=== PATIENT | female | born 1950 | race Caucasian/White ===

== ENCOUNTER 2019-09-09 10:06 | Outpatient (CLI) | payer MEDICARE, OTHER, SELFPAY ==
[2019-09-09 10:45] LABS: Alanine Aminotransferase 39 U/L (4-35); Alkaline Phosphatase 99 U/L (38-126); Aspartate Amino Transferase 39 U/L (14-36); Bilirubin,Total 0.3 mg/dL (0.2-1.3); Blood Urea Nitrogen 16 mg/dL (7-17); Calcium 8.8 mg/dL (8.4-10.2); Carbon Dioxide 29 mmol/L (22-30); Chloride 102 mmol/L (98-107); Cholesterol 133 mg/dL (0-200); Estimated Glomerular Filt Rate > 60; Glucose 101 mg/dL (65-105); HDL Direct 51 mg/dL; Potassium 3.6 mmol/L (3.4-5.0); Sodium 139 mmol/L (137-145); Triglycerides 98 mg/dL (<150)
[2019-09-09 10:56] LABS: LDL Cholesterol Direct 70 mg/dL
[2019-09-09 11:15] LABS: Thyroid Stimulating Hormone 0.496 uIU/mL (0.465-4.680)
[2019-09-09 12:52] LABS: Iron 116 ug/dL (37-170)
[2019-09-09 12:55] LABS: Percent Iron Saturation 40 % (20-50)
== END 2019-09-09 10:07 | disposition home or self-care (01) ==
LOC: ANHLAB 10:10
PROVIDERS: PCP Internal Medicine; Visit Provider Nurse Practitioner
DX: E78.5 Hyperlipidemia, unspecified (principal); E55.9 Vitamin D deficiency, unspecified; E03.9 Hypothyroidism, unspecified; D50.9 Iron deficiency anemia, unspecified; E53.8 Deficiency of other specified B group vitamins
CPT/HCPCS: 36415; 80053; 80061; 82306; 82607; 83540; 83550; 84443

== ENCOUNTER 2019-09-30 11:32 | Outpatient (CLI) | payer MEDICARE, OTHER, SELFPAY ==
[2019-09-30 12:28] LABS: Add Urine Microscopic? YES; Appearance Urine Clear (Clear); Bilirubin Urine Negative (Negative); Blood Urine 2+ (Negative); Color Urine Colorless (Yellow); Glucose Urine UA Negative (Negative); Ketones Urine Negative (Negative); Leukocyte Esterase Ur Trace LEU/UL (Negative); Mucus Urine Rare /lpf; Nitrate Urine Negative (Negative); Protein Urine Negative (Negative); RBC Urine 0-2 /hpf (0-2); Specific Grav Ur 1.006 (1.001-1.035); Squamous Epithelial Cell Urine Rare /hpf (Few); Urobilinogen Urine Negative mg/dL (<2.0)
== END 2019-09-30 11:33 | disposition home or self-care (01) ==
LOC: ANHLAB 11:34
PROVIDERS: PCP Internal Medicine; Visit Provider Nurse Practitioner
DX: R39.9 Unspecified symptoms and signs involving the genitourinary system (principal)
CPT/HCPCS: 81001

== ENCOUNTER 2019-10-03 13:29 | Emergency (ER) | payer MEDICARE, OTHER, SELFPAY ==
--- NOTE | ~2019-10-03 | CT_ITS ---
EXAMINATION: CT abdomen pelvis w con INDICATION: Abdominal pain TECHNIQUE: Computed tomographic images of the abdomen and pelvis were obtained after the administrati on of 100 cc of Omnipaque 350 intravenous contrast. The dose-length product (DLP) was 162.34 mGy-cm. Automated exposure control and iterative reconstruction technique were employed. COMPARISON: 02/17/2018, 08/02/2018 FINDINGS: There is moderate emphysema of the visualized lung bases. Also seen are stable pulmonary no dules of the lung bases. There is mild dependent atelectasis. The heart size is normal. A stable 8 mm lesion in the right hepatic lobe demonstrates peripheral nodular enhancement, consistent with a rose ngioma. There are surgical clips in the left upper quadrant. The gallbladder is surgically absent. Th ere is mild enlargement of the common bile duct and central intrahepatic ducts which is likely due to post cholecystectomy state. The spleen, pancreas, and adrenal glands are normal. There is a 1.7 cm c yst of the left kidney. The right kidney is normal. There is calcified atherosclerosis of the aorta a nd many of the other arteries. No pathologically enlarged abdominal or pelvic lymph nodes are identif ied. There is no free intraperitoneal gas or evidence of bowel obstruction. A large volume of colonic stool is present. There are changes of anterior fusion procedure at L5-S1. IMPRESSION: 1. Constipation. Reviewed, dictated and finalized at location A. R SAMPLE CLERK IMPRESSION: 1. Constipation.
[2019-10-03 13:31] VITALS: BP 73/61; PULSE 79; RESP 18; TEMP 36.9; O2SAT 100
[2019-10-03 13:45] VITALS: BP 114/71; PULSE 76; RESP 20; O2SAT 98
--- NOTE | 2019-10-03 13:49 | ED.ABDPAIN ---
HPI - Abdominal Pain General Chief Complaint: Abdominal Pain Stated Complaint: epigastric pain Time Seen by Provider: 10/03/19 13:45 Source: patient Mode of arrival: ambulatory Limitations: no limitations History of Present Illness HPI narrative: A 68 y/o female presents to the ED with c/o epigastric ABD pain that radiates to her chest. Pt states that the sharp ABD pain started 2 days ago and has been constant since. She rates the ABD pain a 9/10 in severity in the ED and does not note any aggravating or alleviating factors. Pt denies N/V/D, fever, chills, SOB, and any urinary symptoms. She has a PMHx of GERD and takes Omeprazole daily. MD elicited complaint: abdominal pain (Epigastric) Onset (ago): day(s) (2) Pain Consistency: constant Pain scale (0-10): 9 Quality: sharp Radiation: chest Exacerbating factors: nothing Relieving factors: nothing Associated symptoms: denies other symptoms Treatments prior to arrival: antacids (Omeprazole) Related Data Home Medications Medication Instructions Recorded Confirmed hydrocodone 10 mg-acetaminophen 1 tablet PO Q6H PRN 09/09/19 09/30/19 325 mg tablet famotidine 40 mg PO DAILY 10/03/19 Allergies Allergy/AdvReac Type Severity Reaction Status Date / Time meperidine Allergy Unknown Nausea and Verified 10/03/19 13:46 Vomiting morphine Allergy Unknown Nausea and Verified 10/03/19 13:46 Vomiting oxycodone Allergy Unknown tingling Verified 10/03/19 13:46 MEPERIDINE HCL Allergy Unknown NAUSEATED Uncoded 10/03/19 13:46 Review of Systems Review of Systems: All systems reviewed & are unremarkable except as noted in HPI and below Constitutional: Constitutional: Denies chills and Denies fever(s) Respiratory: Respiratory: Denies dyspnea Gastrointestinal: Gastrointestinal: Reports abdominal pain (Epigastric that radiates to chest), Denies diarrhea, Denies nausea and Denies vomiting Genitourinary: Genitourinary: Denies hematuria, Denies urinary frequency, Denies post void dribbling, Denies nocturia, Denies dysuria, Denies urinary incontinence, Denies urinary hesitancy and Denies urinary urgency PMFSH Past Medical History Medical History (Updated 10/03/19 @ 18:21 by Jossie Castaneda MD) Acute insomnia Anxiety Arthritis DDD (degenerative disc disease) GERD (gastroesophageal reflux disease) History of blood transfusion History of gastrectomy History of syncope Hyperlipidemia Hypothyroidism Iron deficiency anemia Ulcer UTI symptoms Viral meningitis Vitamin D deficiency Surgical History Surgical History (Updated 10/03/19 @ 14:30 by Jaci Fields) H/O: hysterectomy History of back surgery History of carpal tunnel release History of cholecystectomy History of dilation of urethra History of foot surgery History of inguinal hernia repair History of lumbar fusion History of partial gastrectomy History of tonsillectomy Family History Family History Grandparent Carcinoma of colon Mother Cerebrovascular accident Patient's mother is Other Family history of malignant neoplasm of male breast Family history of malignant neoplasm of urinary bladder Social History Social History Smoking end date: 08/06/13 Alcohol intake: never Exam Const: General: no acute distress and well developed Orientation/consciousness: oriented to person, oriented to place, oriented to time and patient oriented x3 HENMT: Head: normocephalic Ears: external ears normal General nose exam: Normal external nose present Eyes: General: appearance normal, both eyes and all related structures Conjunctivae: conjunctivae normal Neck: Neck: normal visual inspection and full ROM Chest: Chest palpation & inspection: normal inspection of the chest and no tenderness Resp: Effort & Inspection: normal respiratory effort Auscultation: clear to auscultation bilaterally Cardio
--- NOTE | 2019-10-03 14:03 | ECG_ITS ---
Measurements Intervals [place] Rate: 74 P: 71 [place]: 167 QRS: 68 QRSD: 92 T: 66 QT: 422 QTc: 468 Interpretive Statements SINUS RHYTHM NORMAL ECG Electronically Signed On 10-03-2019 14:22:27 DRILL BIT SHARPENER by Jeferson Mendez D.O.
[2019-10-03] MEDS: BELLADONNA ALK/PHENOB ELIX 10 ML, MAG HYDROX/ALUMINUM HYD/SIMETH 30 ML, LIDOCAINE HCL 2... PO (14:17)
[2019-10-03 14:19] LABS: Basophils Percent Auto 0.4 % (0.2-1.2); Eosinophils Percent Auto 0.4 % (0-4.4); Hematocrit 41.2 % (37.0-47.0); Hemoglobin 13.6 g/dL (12.0-15.0); Immature Granulocyte Absolute 0.03 K/mm3 (0.00-0.031); Immature Granulocyte Percent A 0.3 % (0-0.5); Lymphocytes Absolute Auto 0.45 K/mm3 (0.9-3.2); Mean Corpuscular Hemoglobin 31.6 pg (26-34); Mean Corpuscular Volume 95.6 fl (80-100); Monocytes Absolute Auto 0.4 K/mm3 (0.1-0.6); Monocytes Percent Auto 3.2 % (2.6-8.5); Neutrophils Absolute Auto 10.3 K/mm3 (1.3-6.7); Neutrophils Percent Auto 91.7 % (45.5-73.1); Platelet Count Result 177 k/mm3 (150-375); Red Blood Count 4.31 M/mm3 (4.2-5.4); Red Cell Distribution Width 13.9 % (11.5-14.5); White Blood Count 11.3 K/mm3 (4.5-10.0)
[2019-10-03] MEDS: LIDOCAINE HCL 2% VISC SOLN 15 ML UDC (14:23)
[2019-10-03] MEDS: MAG HYDROX/AL HYDROX/SIMETH 30 ML UDC (14:23)
[2019-10-03] MEDS: BELLADONNA ALK/PHENOB ELIXIR 10 ML (14:23)
[2019-10-03 14:31] LABS: Blood Urea Nitrogen 22 mg/dL (8-26); Estimated CRCL calculation 48 ml/min; Estimated Glomerular Filt Rate > 60
[2019-10-03 15:10] LABS: Troponin I < 0.012 ng/mL (0.000-0.034)
[2019-10-03 15:11] LABS: Add Urine Microscopic? YES; Appearance Urine Clear (Clear); Bacteria Urine Trace /hpf; Bilirubin Urine Negative (Negative); Blood Urine 2+ (Negative); Color Urine Amber (Yellow); Glucose Urine UA Negative (Negative); Ketones Urine Negative (Negative); Leukocyte Esterase Ur Negative LEU/UL (Negative); Mucus Urine Rare /lpf; Nitrate Urine Negative (Negative); Protein Urine Negative (Negative); Squamous Epithelial Cell Urine Rare /hpf (Few); WBC Urine 0-3 /hpf
[2019-10-03 15:12] LABS: Specific Grav Ur 1.046 (1.001-1.035)
[2019-10-03 17:33] LABS: Troponin I < 0.012 ng/mL (0.000-0.034)
[2019-10-03 18:43] VITALS: BP 132/80; PULSE 80; RESP 20; TEMP 36.7; O2SAT 98
== END 2019-10-03 18:44 | disposition home or self-care (01) ==
PROVIDERS: Emergency Provider Emergency Medicine; PCP Internal Medicine
DX: R10.13 Epigastric pain (principal); R07.9 Chest pain, unspecified; K21.9 Gastro-esophageal reflux disease without esophagitis; M19.90 Unspecified osteoarthritis, unspecified site; E78.5 Hyperlipidemia, unspecified; E03.9 Hypothyroidism, unspecified; D50.9 Iron deficiency anemia, unspecified; E55.9 Vitamin D deficiency, unspecified; Z98.1 Arthrodesis status; Z90.3 Acquired absence of stomach [part of]; Z87.891 Personal history of nicotine dependence
CPT/HCPCS: 36415; 74177; 81001; 84484; 85025; 93005; 99284; A9270; Q9967

== ENCOUNTER 2019-10-06 15:22 | Inpatient (IN) | payer MEDICARE, OTHER, SELFPAY ==
--- NOTE | ~2019-10-06 | CT_ITS ---
EXAMINATION: CT abdomen pelvis w con EXAM DATE: 10/06/2019 17:16 INDICATION: Left lower quadrant abdominal pain. TECHNIQUE: Spiral CT of the abdomen and pelvis was performed following intravenous injection of 100 m L Omnipaque 350. Axial, coronal and sagittal images were reviewed. The dose-length product (DLP) fo r this examination was 152.59 mGy-cm. The exposure was tailored according to patient size (auto mA e xposure control), and iterative reconstruction (ASIR) was used as additional dose reduction technique . Comparison is made to prior examination from 10/03/2019. FINDINGS: There is been development of mild diffuse body wall, mesenteric fat stranding, edema. Ther e is a 1 cm right liver dome hemangioma unchanged. The spleen, pancreas are unremarkable. There is so me left adrenal hyperplasia or small adenomas unchanged. There are cholecystectomy clips. Portal an d splenic veins are patent. Kidneys enhance symmetrically. There is no hydronephrosis. There is 1.5 cm left renal cyst. The uterus is not identified and has likely been surgically resected. The blad katie is unremarkable. There is no retroperitoneal or pelvic lymphadenopathy. There is moderate scat tered arteriosclerotic disease. The appendix is not positively visualized. There is no pericecal inflammatory change to suggest appe ndicitis. There are surgical changes from intact gastric bypass surgery. There is been interval de crease in amount of colonic stool compared to previous examination. No free intraperitoneal gas. The heart is normal in size. There are no pericardial or pleural effusions. Moderate emphysema. Th ere are no osteoblastic or osteolytic lesions identified. L5-S1 anterior and interbody fusion. IMPRESSION: 1. Interval development of mild fat stranding, mild diffuse edema. 2. No acute intra-abdominal findings. 3. Small liver hemangioma. 4. Moderate emphysema. 5. Surgical changes. Reviewed, dictated and finalized at location A. T PILE DRIVER OPERATOR
--- NOTE | ~2019-10-06 | XR_ITS ---
XR chest 2V 10/06/2019 16:26 Indication: Chest pain Procedure: 2 view chest Comparison: 02/17/2018 Findings: Heart size normal. There is subsegmental atelectasis left mid thorax. No focal pneumonia, e anisha, pleural effusion or pneumothorax. The lungs are hyperinflated which is consistent with, but not diagnostic of chronic obstructive pulmonary disease. Impression: 1: Subsegmental atelectasis left mid thorax. Reviewed, dictated and finalized at location B. G ROOM OPERATOR Impression: 1: Subsegmental atelectasis left mid thorax.
[2019-10-06 15:27] VITALS: BP 144/82; PULSE 87; RESP 18; TEMP 36.7; O2SAT 93
--- NOTE | 2019-10-06 15:28 | ECG_ITS ---
Measurements Intervals [place] Rate: 85 P: 65 NM: 175 QRS: 65 QRSD: 88 T: 29 QT: 376 QTc: 450 Interpretive Statements SINUS RHYTHM CANNOT RULE OUT SEPTAL INFARCT, AGE INDETERMINATE BORDERLINE ST-T WAVE ABNORMALITY- INFERIOR LEADS BASELINE ARTIFACT- I, II, III, AVR, AVL, AVF ABNORMAL ECG Electronically Signed On 10-06-2019 16:22:29 ACCESS RN by Jeferson Mendez D.O.
[2019-10-06 15:44] LABS: Basophils Absolute Auto 0.1 K/mm3 (0.0-0.1); Basophils Percent Auto 0.4 % (0.2-1.2); Eosinophils Absolute Auto 0.2 K/mm3 (0-0.3); Eosinophils Percent Auto 1.2 % (0-4.4); Hematocrit 42.9 % (37.0-47.0); Hemoglobin 14.1 g/dL (12.0-15.0); Immature Granulocyte Absolute 0.06 K/mm3 (0.00-0.031); Immature Granulocyte Percent A 0.5 % (0-0.5); Lymphocytes Absolute Auto 0.55 K/mm3 (0.9-3.2); Lymphocytes Percent Auto 4.6 % (18.3-44.2); Mean Corpuscular HGB Conc 32.9 g/dl (32-36); Mean Corpuscular Hemoglobin 31.1 pg (26-34); Mean Corpuscular Volume 94.5 fl (80-100); Mean Platelet Volume 10.5 fl (7.4-10.4); Monocytes Absolute Auto 0.4 K/mm3 (0.1-0.6); Monocytes Percent Auto 3.4 % (2.6-8.5); Neutrophils Absolute Auto 10.8 K/mm3 (1.3-6.7); Neutrophils Percent Auto 89.9 % (45.5-73.1); Platelet Count Result 197 k/mm3 (150-375); Red Blood Count 4.54 M/mm3 (4.2-5.4); Red Cell Distribution Width 14.6 % (11.5-14.5); White Blood Count 12.1 K/mm3 (4.5-10.0)
[2019-10-06 15:55] LABS: Blood Urea Nitrogen 11 mg/dL (7-17); Calcium 8.4 mg/dL (8.4-10.2); Carbon Dioxide 25 mmol/L (22-30); Chloride 101 mmol/L (98-107); Estimated CRCL calculation 23 ml/min; Estimated Glomerular Filt Rate > 60; Glucose 91 mg/dL (65-105); Potassium 3.2 mmol/L (3.4-5.0); Sodium 134 mmol/L (137-145)
[2019-10-06 15:56] LABS: INR 0.9; Prothrombin Time 11.7 Seconds (11.1-14.7)
[2019-10-06 15:57] LABS: Partial Thromboplastin Time 27.8 SECONDS (22.3-36.8)
[2019-10-06 16:07] LABS: Troponin I < 0.012 ng/mL (0.000-0.034)
[2019-10-06 16:16] VITALS: BP 120/70; PULSE 84; RESP 14; O2SAT 98
--- NOTE | 2019-10-06 16:16 | PC.NURSE ---
Pt reports taking 2 of her Hydrocodone 10 today, also reports taking a muscle relaxer YARN TESTER - unsure of the name, not her RX (not on external med hx).
--- NOTE | 2019-10-06 16:45 | ED.BACK ---
HPI - Back Pain/Injury General Chief Complaint: Back Pain/Injury Stated Complaint: Back pain Time Seen by Provider: 10/06/19 16:36 Source: patient and RN notes reviewed Mode of arrival: ambulatory Limitations: no limitations History of Present Illness HPI Narrative: A 69 y/o female presents to the ED with constant, severe, diffuse back pain beginning this afternoon. She states that she was seen here last week for similar but less severe pain and that she was dx with constipation and d/c on Duralax. She reports that the pain resolved but then returned more severe this afternoon. She notes associated diffuse ABD pain. She also notes that she is on pain medication for chronic back pain and denies missing any dosages. She also denies any decrease in appetite, N/V/D, fevers, chills, SOB, or CP. MD elicited complaint: back pain Pertinent past history: back surgery Onset (ago): hour(s) (this afternoon) Timing: constant Severity: severe Similar Symptoms Previously: Yes Associated symptoms: abdominal pain (diffuse) Related Data Home Medications Medication Instructions Recorded Confirmed hydrocodone 10 mg-acetaminophen 1 tablet PO Q6H PRN 09/09/19 09/30/19 325 mg tablet famotidine 40 mg PO DAILY 10/03/19 Allergies Allergy/AdvReac Type Severity Reaction Status Date / Time meperidine Allergy Unknown Nausea and Verified 10/06/19 16:13 Vomiting morphine Allergy Unknown Nausea and Verified 10/06/19 16:13 Vomiting oxycodone Allergy Unknown tingling Verified 10/06/19 16:13 MEPERIDINE HCL Allergy Unknown NAUSEATED Uncoded 10/06/19 16:13 Review of Systems Review of Systems: All systems reviewed & are unremarkable except as noted in HPI and below Constitutional: Constitutional: Denies chills, Denies fever(s) and Denies poor appetite Cardiovascular: Cardiovascular: Denies chest pain Respiratory: Respiratory: Denies dyspnea Gastrointestinal: Gastrointestinal: Reports abdominal pain (diffuse), Denies diarrhea, Denies nausea and Denies vomiting Musculoskeletal: Musculoskeletal: Reports back pain (diffuse) [facility] Past Medical History Medical History Acute insomnia Anxiety Arthritis DDD (degenerative disc disease) GERD (gastroesophageal reflux disease) History of blood transfusion History of gastrectomy History of syncope Hyperlipidemia Hypothyroidism Iron deficiency anemia Ulcer UTI symptoms Viral meningitis Vitamin D deficiency Surgical History Surgical History H/O: hysterectomy History of back surgery History of carpal tunnel release History of cholecystectomy History of dilation of urethra History of foot surgery History of inguinal hernia repair History of lumbar fusion History of partial gastrectomy History of tonsillectomy Family History Family History Grandparent Carcinoma of colon Mother Cerebrovascular accident Patient's mother is Other Family history of malignant neoplasm of male breast Family history of malignant neoplasm of urinary bladder Social History Social History Smoking end date: 08/06/13 Alcohol intake: never Gender identity (if verbalized by the patient): Female Exam Const: General: acute distress mild, ill appearing chronically and other (elderly and frail) HENMT: Mouth: Yes lip normal and Yes moist mucous membranes Eyes: Conjunctivae: conjunctivae normal Pupils: Equal, round and reactive pupils present Resp: Effort & Inspection: normal respiratory effort Auscultation: clear to auscultation bilaterally Cardio: Rate: regular rate Rhythm: regular rhythm Heart sounds: no murmurs GI: GI Palp: Yes abdominal tenderness (inconsistent) and Yes Soft to palpation Auscultation: normal bowel sounds Back/Spine/Pelvis: Other: Full ROM. Skin: General skin exam: sang
--- NOTE | 2019-10-06 17:04 | PC.NURSE ---
Pt to XRAY via stretcher.
[2019-10-06 17:29] VITALS: BP 143/61; PULSE 88; RESP 17; O2SAT 95
[2019-10-06 17:46] LABS: Add Urine Microscopic? YES; Appearance Urine Clear (Clear); Bacteria Urine Trace /hpf; Bilirubin Urine Negative (Negative); Blood Urine 1+ (Negative); Color Urine Amber (Yellow); Glucose Urine UA Negative (Negative); Ketones Urine 1+ mg/dL (Negative); Leukocyte Esterase Ur Negative LEU/UL (Negative); Nitrate Urine Negative (Negative); Protein Urine Negative (Negative); RBC Urine 0-2 /hpf (0-2); Urobilinogen Urine Negative mg/dL (<2.0); WBC Urine 0-3 /hpf
[2019-10-06 17:48] LABS: Specific Grav Ur 1.032 (1.001-1.035)
[2019-10-06 18:08] VITALS: BP 146/73; PULSE 78; RESP 16; O2SAT 96
[2019-10-06] MEDS: KETOROLAC 30 MG/ML VIAL (*BKC) IV PUSH (18:13)
[2019-10-06 18:50] VITALS: BP 148/72; PULSE 78; RESP 21; O2SAT 94
[2019-10-06 18:55] LABS: Troponin I < 0.012 ng/mL (0.000-0.034)
[2019-10-06] MEDS: LACTATED RINGERS 1,000 ML 100 ML IV CONT (19:37)
[2019-10-06 20:00] VITALS: BMI 18.1
--- NOTE | 2019-10-06 20:57 | PC.NURSE ---
This patient, Yulissa Carver, was admitted to 2 Medical Room 248-. Patient/family oriented to hospital policies and general routines including ID bracelet, bed and alarms, visiting hours, pain management, procedures, bathroom and other care routines, personal items, smoking policy, room service/diet, and visiting hours. Valuables list has been completed. Information on how to activate the Rapid Response Team has been discussed. Patient/Family are encouraged to report perceived risks to care and to ask questions if they do not understand what they are told or what they should do.
[2019-10-06 22:00] VITALS: BP 152/68; PULSE 73; RESP 20; TEMP 36.3; O2SAT 99
[2019-10-06 22:24] LABS: Troponin I < 0.012 ng/mL (0.000-0.034)
[2019-10-07 06:00] VITALS: BP 158/73; PULSE 77; RESP 18; TEMP 37.3; O2SAT 96
[2019-10-07] MEDS: LACTATED RINGERS 1,000 ML 100 ML IV CONT (06:16)
[2019-10-07] MEDS: PANTOPRAZOLE SODIUM IV 40 MG VIAL IV PUSH (08:30)
--- NOTE | 2019-10-07 09:37 | PM.IMHP ---
H&P: HPI History of Present Illness Chief complaint: intractable abdominal pain Narrative: Yulissa Carver is a 69 year old female with chronic low back pain here for acute back pain. Patient with chronic low back pain and sees a highway painter helper in [facility] in [place]. She has had an L4-5 lumbar spinal fusion in the distant past. She had an injection to the low back about 2-3 months ago. She does have occasional flares but this seems to be the worst. She is on hydrocodone which she takes 3 to 4 times a day. Unsure f when her last MRI was. Patient was here on 10/03/[address] of the abdomen found she had constipation that was treated with with resolution of the constipation and of her abd pain. yesterday morning, she was doing errands driving in her car. No heavy lifting, trauma or falls. She developed low back pain that progressively worsened. She returned home. She had taken a total of 2 hydrocodone tablets that day without benefit. Radiation of the pain to the left hip (not uncommon). Pain was constant and severe. She denies saddle anaesthesia, lower extremity numbness/tingling, bladder incontinence or weakness in the legs. She was able to walk to the car and was driven to the ER by her . She denies that she has been out of her alprazolam or hydrocodone. In the ER, she was hemodynamically stable. She was complaining of abdominal pain again but she denies to me today that she had abdominal pain. CXR showing atelectasis. CT Abd/Pelvis showing interval development of mild fat stranding, mild diffuse edema. She was given Toradol and Fentanyl and admitted for further care. She denies dysuria or hematuria. She was recently diagnosed with UTI is currently antibiotics for this does not recall the name of the antibiotic. She had recent syncopal episode about 1 month ago this is being followed by her doctor. No recent fever or chills. No weight changes. Review of Systems Review of Systems: All systems reviewed & are unremarkable except as noted in HPI and below PMFSH Past Medical History Medical History (Updated 10/07/19 @ 10:05 by Len Marcum MD) Acute insomnia Anxiety Arthritis Chronic low back pain DDD (degenerative disc disease) GERD (gastroesophageal reflux disease) History of blood transfusion History of syncope Hyperlipidemia Hypothyroidism Iron deficiency anemia Ulcer Viral meningitis Vitamin D deficiency Surgical History Surgical History (Updated 10/07/19 @ 09:59 by Len Marcum MD) H/O: hysterectomy History of carpal tunnel release History of cholecystectomy History of dilation of urethra History of foot surgery History of inguinal hernia repair Patient is unsure this is accurate History of lumbar fusion L4-L5 History of partial gastrectomy Due to peptic ulcer disease History of tonsillectomy Family History Family History Grandparent Carcinoma of colon Mother Cerebrovascular accident Patient's mother is Other Family history of malignant neoplasm of male breast Family history of malignant neoplasm of urinary bladder Social History Social History (Updated 10/07/19 @ 10:01 by Len Marcum MD) Social History: Patient lives at home with her . She has 2 dogs. She smokes less than 1 pack a day for 40+ years. Denies alcohol or drug use. She is a full code. She nominates her to be the individual who would make medical decisions for her if she is not able. Smoking packs per day: 1 Smoking cigarettes per day: 20.0 Years smoked: 45 Smoking pack-years: 45.00 Smoking status: Current every day smoker Smoking end date: 08/06/13 Alcohol intake: never Substance use: never Gender identity (if verbalized by the patient): Female Spiritual care concerns: No Agree to blood products: Yes Meds Home Medications and Allergies Home Medic
[2019-10-07] MEDS: ALPRAZOLAM 0.5 MG TABLET 1 MG PO (10:25)
[2019-10-07] MEDS: KETOROLAC 15 MG/ML VIAL (*BKC) IV PUSH (10:32)
[2019-10-07] MEDS: ESCITALOPRAM OXALATE 10 MG TABLET 20 MG PO (11:57)
[2019-10-07] MEDS: LEVOTHYROXINE SODIUM 88 MCG TABLET PO (11:57)
[2019-10-07] MEDS: ENOXAPARIN 30 MG/0.3 ML SYRINGE SUB-Q (12:53)
[2019-10-07 14:00] VITALS: BP 161/74; PULSE 62; RESP 22; TEMP 36.8; O2SAT 84
[2019-10-07 14:35] VITALS: BMI 18.1
[2019-10-07] MEDS: CYCLOBENZAPRINE HCL 5 MG TABLET PO ×2 (17:48→20:30)
[2019-10-07 20:00] VITALS: PULSE 62; RESP 22; O2SAT 84
[2019-10-07] MEDS: PANTOPRAZOLE 40 MG TABLET PO (20:30)
[2019-10-07] MEDS: SIMVASTATIN 20 MG TABLET 40 MG PO (20:30)
[2019-10-07] MEDS: DOCUSATE SODIUM 100 MG CAPSULE PO (20:30)
[2019-10-07] MEDS: AMITRIPTYLINE HCL 25 MG TABLET 150 MG PO (20:30)
[2019-10-07 22:00] VITALS: BP 150/59; PULSE 70; RESP 20; TEMP 36.6; O2SAT 98
[2019-10-08 06:00] VITALS: BP 133/58; PULSE 65; RESP 18; TEMP 36.1; O2SAT 96
[2019-10-08] MEDS: CYCLOBENZAPRINE HCL 5 MG TABLET PO ×3 (06:12→21:53)
[2019-10-08] MEDS: LEVOTHYROXINE SODIUM 88 MCG TABLET PO (06:12)
[2019-10-08] MEDS: PANTOPRAZOLE 40 MG TABLET PO ×2 (09:15→21:53)
[2019-10-08] MEDS: ENOXAPARIN 30 MG/0.3 ML SYRINGE SUB-Q (09:15)
[2019-10-08] MEDS: ESCITALOPRAM OXALATE 10 MG TABLET 20 MG PO (09:15)
[2019-10-08] MEDS: DOCUSATE SODIUM 100 MG CAPSULE PO ×2 (09:16→21:53)
--- NOTE | 2019-10-08 11:47 | PM.IMPN ---
Progress Note: A&P Assessment and Plan (1) Acute low back pain: Qualifiers: Back pain laterality: bilateral Sciatica presence: without sciatica Qualified Code(s): M54.5 - Low back pain Code(s): M54.5 - Low back pain Status: Acute (2) Chronic low back pain: Qualifiers: Back pain laterality: bilateral Sciatica presence: without sciatica Qualified Code(s): M54.5 - Low back pain; G89.29 - Other chronic pain Code(s): M54.5 - Low back pain; G89.29 - Other chronic pain Status: Acute (3) Hypothyroidism: Qualifiers: Hypothyroidism type: other Qualified Code(s): E03.8 - Other specified hypothyroidism Code(s): E03.9 - Hypothyroidism, unspecified Status: Acute (4) Tobacco abuse: Code(s): Z72.0 - Tobacco use Status: Acute Additional Plan 10/07/19 -- Patient has been admitted to [address] [place] [id number]. Patient denies to me any chest pain symptoms. No mention of chest pain symptoms in the emergency room. Unclear why troponins were drawn. EKG was reviewed by myself and essentially unchanged from EKG done a few days ago. Will stop IV fluids. Will started diet. Continue the fentanyl for now but add scheduled Tylenol. Resume home medications. PT and OT. She has been educated about the benefits of smoking cessation. Lovenox for DVT prophylaxis. 10/08/19 -- Patient improving. Continue PT/OT. Continue scheduled Flexeril. Fentanyl for severe pain and hydrocodone for moderate pain. She has completed her 4 doses of IV acetaminophen. Subjective Date/time seen: 10/08/19 11:47 Interval history: 69 year old female with chronic low back pain here for acute back pain. Patient up to the chair. Walking to the BR. Feels better but relying on the narcotics. No CP ro abd pain. No incontinence. No BMs. Exam Narrative: Exam Narrative: Gen - NARD siting up in a chair Chest -lungs are clear to auscultation bilaterally. Normal respiratory rate. CV - RRR S1/S2. Abd -abdomen was soft. Nontender. Nondistended. Positive bowel sounds. Ext - No pedal edema. Normal straight leg raise. Neuro -no focal LE weakness. Psych - nml mood and affect Skin - Warm and dry Objective Data Vital Signs Vital Signs: Vital Signs - 24 hr 10/07/19 14:00 10/07/19 20:00 10/07/19 22:00 Temperature 98.2 F 97.8 F Pulse Rate 62 62 70 Respiratory Rate 22 H 22 H 20 Blood Pressure 161/74 H 150/59 H Pulse Oximetry 84 L 84 L 98 10/08/19 06:00 Temperature 97.0 F L Pulse Rate 65 Respiratory Rate 18 Blood Pressure 133/58 L Pulse Oximetry 96 Intake/Output Intake/Output: Intake & Output 10/05/19 10/06/19 10/07/19 10/08/19 23:59 23:59 23:59 23:59 Intake Total 1640 950 Output Total 607 512 3265 Balance -100 940 -100 Meds/Results Medications: Active Medications Generic Name Dose Route Start Last Admin Trade Name Freq PRN Reason Stop Dose Admin Hydrocodone Bitart/Acetaminophen 1 tab 10/07/19 10:09 [place] 10-325 Mg PO Q6H PRN Pain 4-7 Alprazolam 1 mg 10/07/19 10:09 10/07/19 10:25 Xanax PO 1 mg TID PRN Administration back pain or anxiety Amitriptyline HCl 150 mg 10/07/19 21:00 10/07/19 20:30 Elavil PO 150 mg HS [facility] Administration Cyanocobalamin 1,000 mcg 11/01/19 09:00 Vitamin B-12 Inj IM MONTHLY [facility] Cyclobenzaprine HCl 5 mg 10/07/19 17:10 10/08/19 06:12 Flexeril PO 5 mg Q8HR [facility] Administration Docusate Sodium 100 mg 10/07/19 21:00 10/08/19 09:16 Colace Capsule PO 100 mg Q12HR [facility] Administration Enoxaparin Sodium 30 mg 10/07/19 09:00 10/08/19 09:15 Lovenox SUB-Q 30 mg DAILY [facility] Administration Ergocalciferol 50,000 unit 11/05/19 09:00 Drisdol PO MONTHLY [facility] Escitalopram Oxalate 20 mg 10/07/19 09:00 10/08/19 09:15 Lexapro PO 20 mg DAILY SH[facility] Administration Fentanyl Citrate 50 mcg 10/06/19 18:07 10/08/19 11:33 Sublimaze IV PUSH 50
[2019-10-08 14:00] VITALS: BP 151/76; PULSE 68; RESP 18; TEMP 37.1; O2SAT 95
--- NOTE | 2019-10-08 19:54 | PC.NURSE ---
On 10/08/19, the sharon, [NIKKO Michael], provided care and completed [facility] documentation on this patient. I have reviewed her documentation and agree with the findings.
[2019-10-08] MEDS: AMITRIPTYLINE HCL 25 MG TABLET 150 MG PO (21:53)
[2019-10-08] MEDS: SIMVASTATIN 20 MG TABLET 40 MG PO (21:53)
[2019-10-08 22:00] VITALS: BP 128/57; PULSE 72; RESP 16; TEMP 36.1; O2SAT 96
[2019-10-08] MEDS: ALPRAZOLAM 0.5 MG TABLET 1 MG PO (23:35)
[2019-10-09 06:00] VITALS: BP 128/62; PULSE 78; RESP 16; TEMP 36.2; O2SAT 90
[2019-10-09] MEDS: LEVOTHYROXINE SODIUM 88 MCG TABLET PO (06:09)
[2019-10-09] MEDS: CYCLOBENZAPRINE HCL 5 MG TABLET PO ×3 (06:09→23:01)
[2019-10-09 08:00] VITALS: PULSE 78; RESP 16; O2SAT 90
[2019-10-09] MEDS: ESCITALOPRAM OXALATE 10 MG TABLET 20 MG PO (08:54)
[2019-10-09] MEDS: ENOXAPARIN 30 MG/0.3 ML SYRINGE SUB-Q (08:54)
[2019-10-09] MEDS: PANTOPRAZOLE 40 MG TABLET PO ×2 (08:54→20:12)
[2019-10-09] MEDS: DOCUSATE SODIUM 100 MG CAPSULE PO ×2 (08:54→20:12)
[2019-10-09] MEDS: ALPRAZOLAM 0.5 MG TABLET 1 MG PO ×3 (12:53→23:01)
[2019-10-09 14:00] VITALS: BP 119/60; PULSE 68; RESP 16; TEMP 36.7; O2SAT 97
--- NOTE | 2019-10-09 16:10 | PM.IMPN ---
Progress Note: A&P Assessment and Plan (1) Acute low back pain: Qualifiers: Back pain laterality: bilateral Sciatica presence: without sciatica Qualified Code(s): M54.5 - Low back pain Code(s): M54.5 - Low back pain Status: Acute (2) Chronic low back pain: Qualifiers: Back pain laterality: bilateral Sciatica presence: without sciatica Qualified Code(s): M54.5 - Low back pain; G89.29 - Other chronic pain Code(s): M54.5 - Low back pain; G89.29 - Other chronic pain Status: Acute (3) Hypothyroidism: Qualifiers: Hypothyroidism type: other Qualified Code(s): E03.8 - Other specified hypothyroidism Code(s): E03.9 - Hypothyroidism, unspecified Status: Acute (4) Tobacco abuse: Code(s): Z72.0 - Tobacco use Status: Acute Additional Plan 10/07/19 -- Patient has been admitted to [address] [place] [address]. Patient denies to me any chest pain symptoms. No mention of chest pain symptoms in the emergency room. Unclear why troponins were drawn. EKG was reviewed by myself and essentially unchanged from EKG done a few days ago. Will stop IV fluids. Will started diet. Continue the fentanyl for now but add scheduled Tylenol. Resume home medications. PT and OT. She has been educated about the benefits of smoking cessation. Lovenox for DVT prophylaxis. 10/08/19 -- Patient improving. Continue PT/OT. Continue scheduled Flexeril. Fentanyl for severe pain and hydrocodone for moderate pain. She has completed her 4 doses of IV acetaminophen. 10/09/19 -- Patient much improved. Able to care for herself and ambulating without assistance. She does not feel ready so will try for discharge tomorrow. Subjective Date/time seen: 10/09/19 16:10 Interval history: 69 year old female with chronic low back pain here for acute back pain. Patient able to get out of bed by herself. She is walking without assistance. Pain better controlled. Last IV pain med was at 6AM. No BM but passing flatus. Eating okay. Exam Narrative: Exam Narrative: Gen - NARD siting up at side of bed Chest -CTA bilaterally. Normal respiratory rate. CV - RRR S1/S2. Abd -abdomen was soft. Nontender. Nondistended. Positive bowel sounds. Ext - No pedal edema Psych - anxious mood Skin - Warm and dry Objective Data Vital Signs Vital Signs: Vital Signs - 24 hr 10/08/19 22:00 10/09/19 06:00 10/09/19 08:00 Temperature 96.9 F L 97.2 F L Pulse Rate 72 78 78 Respiratory Rate 16 16 16 Blood Pressure 128/57 L 128/62 Pulse Oximetry 96 90 90 10/09/19 14:00 Temperature 98.0 F Pulse Rate 68 Respiratory Rate 16 Blood Pressure 119/60 Pulse Oximetry 97 Intake/Output Intake/Output: Intake & Output 10/06/19 10/07/19 10/08/19 10/09/19 23:59 23:59 23:59 23:59 Intake Total 1640 2330 1100 Output Total 205 607 7091 1000 Balance -100 940 180 100 Meds/Results Medications: Active Medications Generic Name Dose Route Start Last Admin Trade Name Freq PRN Reason Stop Dose Admin Acetaminophen 650 mg 10/08/19 19:21 Tylenol Tablet PO Q6H PRN Mild Pain (1-3) or Fever Hydrocodone Bitart/Acetaminophen 1 tab 10/07/19 10:09 10/09/19 08:52 [place] 10-325 Mg PO 1 tab Q6H PRN Administration Pain 4-7 Alprazolam 1 mg 10/07/19 10:09 10/09/19 12:53 Xanax PO 1 mg TID PRN Administration back pain or anxiety Amitriptyline HCl 150 mg 10/07/19 21:00 10/08/19 21:53 Elavil PO 150 mg HS [facility] Administration Cyanocobalamin 1,000 mcg 11/01/19 09:00 Vitamin B-12 Inj IM MONTHLY SHARMIN Cyclobenzaprine HCl 5 mg 10/07/19 17:10 10/09/19 14:51 Flexeril PO 5 mg Q8HR SHARMIN Administration Docusate Sodium 100 mg 10/07/19 21:00 10/09/19 08:54 Colace Capsule PO 100 mg Q12HR SHARMIN Administration Enoxaparin Sodium 30 mg 10/07/19 09:00 10/09/19 08:54 Lovenox SUB-Q 30 mg DAILY SHARMIN Administration Ergocalciferol 50,000 uni
[2019-10-09] MEDS: SIMVASTATIN 20 MG TABLET 40 MG PO (20:12)
[2019-10-09] MEDS: AMITRIPTYLINE HCL 25 MG TABLET 150 MG PO (20:12)
[2019-10-09 21:58] VITALS: BP 128/60; PULSE 84; RESP 16; TEMP 36.4; O2SAT 96
[2019-10-10] MEDS: LEVOTHYROXINE SODIUM 88 MCG TABLET PO (06:19)
[2019-10-10] MEDS: CYCLOBENZAPRINE HCL 5 MG TABLET PO (06:19)
[2019-10-10 06:26] VITALS: BP 112/56; PULSE 77; RESP 16; TEMP 35.7; O2SAT 93
[2019-10-10] MEDS: ESCITALOPRAM OXALATE 10 MG TABLET 20 MG PO (09:57)
[2019-10-10] MEDS: PANTOPRAZOLE 40 MG TABLET PO (09:57)
[2019-10-10] MEDS: DOCUSATE SODIUM 100 MG CAPSULE PO (09:57)
[2019-10-10] MEDS: ENOXAPARIN 30 MG/0.3 ML SYRINGE SUB-Q (09:57)
--- NOTE | 2019-10-10 11:14 | PM.DS ---
DS: Diagnosis Admitting Diagnosis Admitting Diagnosis: Low back pain Discharge Diagnosis (1) Acute low back pain: Qualifiers: Back pain laterality: bilateral Sciatica presence: without sciatica Qualified Code(s): M54.5 - Low back pain Code(s): M54.5 - Low back pain Status: Acute (2) Chronic low back pain: Qualifiers: Back pain laterality: bilateral Sciatica presence: without sciatica Qualified Code(s): M54.5 - Low back pain; G89.29 - Other chronic pain Code(s): M54.5 - Low back pain; G89.29 - Other chronic pain Status: Acute (3) Hypothyroidism: Qualifiers: Hypothyroidism type: other Qualified Code(s): E03.8 - Other specified hypothyroidism Code(s): E03.9 - Hypothyroidism, unspecified Status: Acute (4) Tobacco abuse: Code(s): Z72.0 - Tobacco use Status: Acute DS: Summary Hospital Course Reason for hospitalization: 69yo female here for acute on chronic low back pain. Please see H&P for details. Hospital Course: Patient has been admitted to [address] [place] [address]. Patient denies to me any chest pain symptoms. No mention of chest pain symptoms in the emergency room. Unclear why troponins were drawn but were negative. EKG was reviewed by myself and essentially unchanged from EKG done a few days ago. Treated with fentanyl for pain and scheduled IV Tylenol. Resume home medications. PT and OT ordered. She has been educated about the benefits of smoking cessation. She had clinical improvement. She is up ambulating to the BR and in the halls. She feels ready for discharge Time Spent with Patient Time attestation: Total time spent providing and/or coordinating discharge services:31 minutes Time spent: Greater than 30 minutes Specific discharge activities: Discussed smoking cessation and updated . Exam Narrative: Exam Narrative: Gen - NARD siting up at side of bed Chest -CTA bilaterally. Normal respiratory rate. CV - RRR S1/S2. Abd -abdomen was soft. Nontender. Nondistended. Positive bowel sounds. Ext - No pedal edema Psych - nml mood Skin - Warm and dry Discharge Plan Discharge Attending physician on discharge: Len Marcum Discharging Clinician: Len Marcum Anticipated Discharge Date/Time: 10/10/19 11:18 Patient Disposition: Home, Self-Care Activity: as tolerated Diet: regular Discharge Instructions: Please follow up with your pain specialist in 1-2 weeks. Patient Instructions: How to Stop Smoking (DC), Antibiotic Form Stand Alone Forms: General Discharge Information Follow-up/Referrals: Jasen Lewis DO [Primary Care Provider] - 1 Week Discharge Medications: New docusate sodium 100 mg Capsule 100 mg PO Q12HR Qty: 60 RF: 1 cyclobenzaprine 5 mg tablet 5 mg PO Q8HR Qty: 12 RF: 0 cyclobenzaprine 5 mg tablet 5 mg PO Q8HR Qty: 12 RF: 0 Continued escitalopram oxalate 20 mg tablet 20 mg PO DAILY Qty: 90 RF: 1 hydrocodone-acetaminophen 10-325 mg tablet 1 tablet PO Q6H PRN (Reason: Pain) RF: 0 alprazolam 1 mg tablet 1 mg PO TID RF: 0 amitriptyline 75 mg tablet 150 mg PO HS RF: 0 simvastatin 40 mg tablet 40 mg PO HS RF: 0 cyanocobalamin (vitamin B-12) 1,000 mcg/mL solution 1,000 mcg IM MONTHLY RF: 0 levothyroxine 112 mcg tablet 88 mcg PO DAILY RF: 0 omeprazole 40 mg capsule,delayed release(DR/EC) 40 mg PO BID Qty: 180 RF: 0 ergocalciferol (vitamin D2) 1,250 mcg (50,000 unit) capsule 1,250 mcg PO MONTHLY Qty: 12 RF: 0 Discontinued famotidine 40 mg Tablet 40 mg PO BID RF: 0 Date of admission: 10/07/19 13:40 Primary Care Provider: Jasen Lewis Admitting Provider: Akin Ware Attending physician on admission: Len Marcum Condition: Stable
== END 2019-10-10 12:41 | disposition home or self-care (01) | DRG 552 ==
LOC: ANHED 18:32 → ANH2MED 18:53
PROVIDERS: Emergency Medicine; Admitting Provider Internal Medicine; Emergency Provider Emergency Medicine; PCP Internal Medicine; Visit Provider Internal Medicine
DX: M54.5 Low back pain (principal); G89.29 Other chronic pain; E03.9 Hypothyroidism, unspecified; F41.9 Anxiety disorder, unspecified; M19.90 Unspecified osteoarthritis, unspecified site; K21.9 Gastro-esophageal reflux disease without esophagitis; E78.5 Hyperlipidemia, unspecified; D50.9 Iron deficiency anemia, unspecified; F17.210 Nicotine dependence, cigarettes, uncomplicated; Z90.710 Acquired absence of both cervix and uterus; Z90.49 Acquired absence of other specified parts of digestive tract; Z98.1 Arthrodesis status
CPT/HCPCS: 36415; 51701; 71046; 74177; 80048; 81001; 84484; 85025; 85610; 85730; 93005; 96361; 96374; 96375; 96376; 97110; 97116; 97161; 97165; 99285; A9270; C9113; G0378; J0131; J1650; J1885; J3010; J7120; Q9967

== ENCOUNTER 2020-03-18 12:47 | Outpatient (CLI) | payer MEDICARE, OTHER, SELFPAY ==
--- NOTE | ~2020-03-18 | MR_ITS ---
EXAMINATION: MR brain/brain stem wo/w con DATE: 03/18/2020 14:00 INDICATION: Chin numbness. TECHNIQUE: Magnetic resonance imaging (MRI) of the brain and brainstem was performed without and with 8 mL MultiHance intravenous contrast. Sequences included sagittal and axial T1-weighted FSE, axial d iffusion-weighted FS EPI, axial T2*-weighted GRE, axial T2-weighted FLAIR Propeller, and axial T2-ara ghted Propeller. Postcontrast sequences included axial and coronal T1-weighted FSE. Apparent diffusio n coefficient (ADC) maps were created. COMPARISON: Head CT 09/02/2019 FINDINGS: There are scattered areas of nonspecific increased T2-weighted signal intensity in the cere bral white matter. There is no intracranial hemorrhage, acute infarction, or abnormal intracranial ma ss lesion. The ventricles are normal in size. The paranasal sinuses are clear. There are likely huitron es of ocular lens replacement surgeries. The mastoid air cells are normal. IMPRESSION: 1. Mild nonspecific cerebral white matter disease, which likely represents chronic small vessel ische kyler disease. Reviewed, dictated and finalized at location B. IMPRESSION: 1. Mild nonspecific cerebral white matter disease, which likely represents assembler motor vehicle vanessa small vessel ischemic disease.
[2020-03-18 13:34] LABS: Estimated Glomerular Filt Rate > 60
== END 2020-03-18 12:48 | disposition home or self-care (01) ==
LOC: ANHIMG 12:49
PROVIDERS: PCP Internal Medicine; Visit Provider Internal Medicine
DX: R20.2 Paresthesia of skin (principal); R93.0 Abnormal findings on diagnostic imaging of skull and head, not elsewhere classified
CPT/HCPCS: 36415; 70553; A9577

== ENCOUNTER 2020-06-01 10:44 | Outpatient (CLI) | payer MEDICARE, OTHER, SELFPAY ==
--- NOTE | ~2020-06-01 | US_ITS ---
EXAMINATION: US venous doppler [facility] DATE: 06/01/2020 11:18 INDICATION: Left lower limb swelling TECHNIQUE: Grayscale ultrasound images without and with compression and Doppler ultrasound images of the left lower extremity veins were obtained. COMPARISON: None. FINDINGS: The visualized portions of left common femoral vein, profunda (deep) femoral vein, femoral vein, popl iteal vein, peroneal veins, posterior tibial veins, gastrocnemius vein and greater saphenous vein out flow are patent. IMPRESSION: 1. No deep venous thrombosis in the left lower limb. Reviewed, dictated and finalized at location B.
== END 2020-06-01 10:45 | disposition home or self-care (01) ==
PROVIDERS: PCP Internal Medicine; Visit Provider Internal Medicine
DX: R60.9 Edema, unspecified (principal)
CPT/HCPCS: 93971

== ENCOUNTER → 2022-10-18 15:51 | Outpatient (CLI) | payer MEDICARE, SELFPAY ==
--- NOTE | ~2022-10-18 | XR_ITS ---
EXAM: XR ankle LT min 3V, XR foot LT min 3V DATE: 10/18/2022 16:15 (accession [id number]), 10/18/2022 16:16 (accession [id number]) HISTORY: M25.572 - Pain in left ankle and joints of left foot . COMPARISON: None available. FINDINGS: Decreased mineralization. No fracture or dislocation. No lytic or blastic lesion. Joint sp aces are maintained. No erosion or periosteal change. Soft tissue swelling about the ankle. Ankle jovon nt effusion. IMPRESSION: No acute osseous finding in the left foot or ankle. Osteopenia. Ankle joint soft tissue s welling and effusion. No radiographic evidence of crystalline arthropathy. Reviewed, dictated and finalized at location K. IMPRESSION: No acute osseous finding in the left foot or ankle. Osteopenia. Ank le joint soft tissue swelling and effusion. No radiographic evidence of crystal line arthropathy.
== END ==
PROVIDERS: PCP Nurse Practitioner; Visit Provider Nurse Practitioner
DX: M25.572 Pain in left ankle and joints of left foot (principal)
CPT/HCPCS: 73610; 73630

== ENCOUNTER 2023-03-06 13:43 | Outpatient (CLI) | payer MEDICARE, SELFPAY ==
--- NOTE | ~2023-03-06 | CT_ITS ---
CT Scan of the Chest without Contrast: Clinical Indication: Lung cancer screening, personal history of nicotine dependence Technique: Contiguous sections were acquired throughout the chest without intravenous contrast. Dose reduction technique was used on this scan by utilizing automated exposure control and iterative recon struction technique. The dose-length product (DLP) was 64.71 mGy-cm. COMPARISON: 08/02/2018 Findings: There is no evidence of any significant mediastinal, hilar or axillary lymphadenopathy. The mediastin al soft tissues appear normal. There is no evidence of pleural or pericardial effusion. 4 mm right upper lobe pulmonary nodule is present, possibly minimally increased from prior exam (axia l image 37). Stable pleural-based nodule at the right middle lobe (axial image 79). Moderate emphysem a present. Probable chronic scarring at the lingula. Images through the upper abdomen reveal no abnormalities. Impression: Lung RADS 2: Benign appearance. 12 month follow-up screening CT advised. Moderate emphysema. Reviewed, dictated and finalized at [facility]. Impression: Lung RADS 2: Benign appearance. 12 month follow-up screening CT advised. Moderate emphysema.
== END 2023-03-06 13:44 | disposition home or self-care (01) ==
PROVIDERS: PCP Family Medicine; Visit Provider Family Medicine
DX: Z12.2 Encounter for screening for malignant neoplasm of respiratory organs (principal); Z87.891 Personal history of nicotine dependence; J43.9 Emphysema, unspecified
CPT/HCPCS: 71271

== ENCOUNTER 2024-03-03 16:08 | Emergency (ER) | payer MEDICARE, OTHER, SELFPAY ==
--- NOTE | ~2024-03-03 | CT_ITS ---
EXAMINATION: CTA chest abdomen pelvis DATE: 03/03/2024 20:00 INDICATION: Chest abdominal and back pain TECHNIQUE: Computed tomographic angiography (CTA) of the chest, abdomen, and pelvis was performed wit hout and with 90 mL Omnipaque-350 intravenous contrast. Volume-rendered 3D-reconstructions of the aor ta and large arteries were constructed by the technologist on a separate workstation. Automated expos ure control and iterative reconstruction technique were employed. The dose-length product was 243.58 mGy-cm. COMPARISON: 03/06/2023, 10/06/2019 and 02/17/2018 FINDINGS: Chest: Mild emphysema. Several scattered ulnar nodules, some of which are unchanged but a few of which are n ew, smaller largest including an 8 x 6 mm nodule at the right upper lobe on image 30, a 7 x 4 mm nodu le in the right lower lobe on image 87, 6 x 4 mm right lower lobe nodule on image 76, a 12 x 4 mm nod ule in the anterior right upper lobe on image 62 and a 7 x 4 mm nodule at the lingula on image 64. Th ere are a few additional scattered new smaller pulmonary nodules. The prior regions of tree-in-bud op acity have resolved. No pulmonary edema, pleural effusion or pneumothorax. No pulmonary embolism. Hea rt size is normal. No pericardial effusion. Thoracic aorta is normal in caliber with no dissection. N o pathologically enlarged thoracic lymphadenopathy. Moderate thoracic spondylosis with unchanged mil d anterior wedging at T6 and T7. Abdomen and pelvis: Cholecystectomy clips the gallbladder fossa. Additional surgical clips in the epigastric region. Live r, spleen, pancreas, right kidney and right adrenal gland are normal. 2.5 cm cyst at the upper pole o f the left kidney. Thickening of the medial limb of the right adrenal gland unchanged since CT dated 02/17/2018 has likely either adrenal hyperplasia or small adenoma. No bowel obstruction. Bladder is no rmal. The uterus is not identified and has likely been surgically resected. Abdominal aorta is normal in caliber with prominent scattered nonhemodynamically significant atherosclerotic plaque. There are penetrating atherosclerosis ulcers and a couple locations along the infrarenal aorta which are new s [place] 10/06/2019. No free intraperitoneal gas or fluid. No pathologically enlarged abdominal or pelvic l ymphadenopathy. Severe lumbar spondylosis with instrumented L5-S1 anterior spinal fusion with anterio r plate and screw fixation and interbody bone graft cage. Left total hip arthroplasty. IMPRESSION: 1. Thoracic and abdominal aorta is normal in caliber with penetrating atherosclerotic ulcers at a cou ple locations along the infrarenal aorta. Would consider urgent vascular surgery consultation. 2. Multiple subcentimeter pulmonary nodules several which are unchanged but a few of which are new an d would recommend 3-6 month follow-up low-dose chest CT. Reviewed, dictated and finalized at location A. IMPRESSION: 1. Thoracic and abdominal aorta is normal in caliber with penetrating atheroscl erotic ulcers at a couple locations along the infrarenal aorta. Would consider urgent vascular surgery consultation. 2. Multiple subcentimeter pulmonary nodules several which are unchanged but a f ew of which are new and would recommend 3-6 month follow-up low-dose chest CT.
--- NOTE | ~2024-03-03 | XR_ITS ---
EXAMINATION: XR chest 1V portable DATE: 03/03/2024 18:48 INDICATION: Chest pain and shortness of breath TECHNIQUE: frontal view of the chest was obtained. COMPARISON: Chest CT dated 03/06/2023 FINDINGS: Hyperexpansion of lungs consistent with emphysema better appreciated on prior CT. No focal airspace o pacities, pulmonary edema, pleural effusion or pneumothorax. Heart size is normal. Multiple surgical clips in the epigastric region. Couple cholecystectomy clips in right upper quadrant. The cardiomedia stinal silhouette is normal. Visualized bones and soft tissues are unremarkable. IMPRESSION: 1. Emphysema. No acute cardiopulmonary disease. Reviewed, dictated and finalized at location A.
--- NOTE | 2024-03-03 16:16 | ECG_ITS ---
Test Date: 2024-03-03 16:22:23 Measurements Intervals [place] Rate: 87 P: 81 NC: 181 QRS: 82 QRSD: 66 T: 76 QT: 321 QTc: 387 Interpretive Statements SINUS RHYTHM ANTEROSEPTAL MYOCARDIAL INFARCTION , OF INDETERMINATE AGE BASELINE ARTIFACT- I, III, AVR, AVL, AVF, V1, V4-V6 ABNORMAL ECG No previous ECG available for comparison Electronically Signed On 03-03-2024 16:39:44 CDT by Jeferson Mendez D.O.
[2024-03-03 16:17] VITALS: BP 169/81; PULSE 98; RESP 18; TEMP 36.7; O2SAT 96
--- NOTE | 2024-03-03 16:40 | ECG_ITS ---
Test Date: 2024-03-03 16:40:42 Measurements Intervals [place] Rate: 84 P: 79 FL: 174 QRS: 74 QRSD: 73 T: 65 QT: 329 QTc: 389 Interpretive Statements SINUS RHYTHM ANTEROSEPTAL INFARCT, AGE INDETERMINATE BASELINE ARTIFACT- I, III, AVR, AVL, AVF ABNORMAL ECG Compared to ECG 03/03/2024 16:22:23 No significant changes Electronically Signed On 03-03-2024 19:41:45 CDT by Jeferson Mendez D.O.
[2024-03-03 16:42] LABS: Basophils Absolute Auto 0.1 K/mm3 (0.0-0.1); Basophils Percent Auto 0.7 % (0.2-1.2); Eosinophils Absolute Auto 0.2 K/mm3 (0-0.3); Eosinophils Percent Auto 2.3 % (0-4.4); Hematocrit 43.8 % (37.0-47.0); Hemoglobin 14.7 g/dL (12.0-15.0); Immature Granulocyte Absolute 0.12 K/mm3 (0.00-0.031); Immature Granulocyte Percent A 1.7 % (0-0.5); Lymphocytes Absolute Auto 1.08 K/mm3 (0.9-3.2); Lymphocytes Percent Auto 15.5 % (18.3-44.2); Mean Corpuscular HGB Conc 33.6 g/dl (32-36); Mean Corpuscular Hemoglobin 32.3 pg (26-34); Mean Corpuscular Volume 96.3 fl (80-100); Mean Platelet Volume 10.6 fl (7.4-10.4); Monocytes Absolute Auto 0.6 K/mm3 (0.1-0.6); Neutrophils Percent Auto 71.8 % (45.5-73.1); Platelet Count Result 233 k/mm3 (150-375); Red Blood Count 4.55 M/mm3 (4.2-5.4); Red Cell Distribution Width 13.3 % (11.5-14.5)
[2024-03-03 16:50] LABS: Alanine Aminotransferase 297 U/L (6-35); Alkaline Phosphatase 408 U/L (38-126); Anion Gap 7 mmol/L (4-12); Aspartate Amino Transferase 60 U/L (14-36); Bilirubin,Total 1.2 mg/dL (0.2-1.3); Blood Urea Nitrogen 17 mg/dL (7-17); Carbon Dioxide 26 mmol/L (22-30); Chloride 103 mmol/L (98-107); Estimated CRCL calculation 40 ml/min; Estimated Glomerular Filt Rate > 60; Glucose 149 mg/dL (65-110); Potassium 4.4 mmol/L (3.4-5.0); Sodium 136 mmol/L (137-145)
[2024-03-03 16:55] VITALS: BP 174/91; PULSE 82; RESP 18; O2SAT 100; O2SAT 97
[2024-03-03 17:02] LABS: Troponin I < 0.012 ng/mL (0.000-0.034)
[2024-03-03 17:54] VITALS: BP 142/68; PULSE 76; RESP 20
--- NOTE | 2024-03-03 18:49 | ED.CHESTPAIN ---
HPI - Chest Pain General Chief Complaint: Chest Pain Stated Complaint: CHEST PAIN/NAUSEA Time Seen by Provider: 03/03/24 17:22 History of Present Illness HPI narrative: 73-year-old female presenting to the emergency department for evaluation for upper abdominal pain back pain that is been ongoing since yesterday. Patient states that she had gastric surgery approximately 15 years ago at [facility]. Patient also reports prior history of cholecystectomy. Patient denies any prior cardiac history. Related Data Home Medications Medication Instructions Recorded Confirmed hydrocodone 5 mg-acetaminophen 325 1 tablet PO Q4H PRN 10/18/22 02/26/24 mg tablet Allergies Allergy/AdvReac Type Severity Reaction Status Date / Time meperidine Allergy Mild Nausea and Verified 11/20/23 14:02 Vomiting morphine Allergy Mild Nausea and Verified 11/20/23 14:02 Vomiting oxycodone Allergy Mild tingling Verified 11/20/23 14:02 nitrofurantoin AdvReac Mild Chest Verified 11/20/23 14:02 heaviness, SOB MEPERIDINE HCL Allergy Mild NAUSEATED Uncoded 11/20/23 14:02 Review of Systems Review of Systems: All systems reviewed & are unremarkable except as noted in HPI and below PMFSH Past Medical History Medical History Acute insomnia Anxiety Arthritis Chronic low back pain DDD (degenerative disc disease) GERD (gastroesophageal reflux disease) History of blood transfusion History of syncope Hyperlipidemia Hypothyroidism Iron deficiency anemia Pulmonary nodules/lesions, multiple Ulcer Viral meningitis Vitamin D deficiency Surgical History Surgical History H/O: hysterectomy History of carpal tunnel release History of cholecystectomy History of dilation of urethra History of foot surgery History of inguinal hernia repair Patient is unsure this is accurate History of lumbar fusion L4-L5 History of partial gastrectomy Due to peptic ulcer disease History of tonsillectomy Family History Family History Grandparent Carcinoma of colon Mother Cerebrovascular accident Patient's mother is Other Family history of malignant neoplasm of male breast Family history of malignant neoplasm of urinary bladder Social History Social History Social History: Smokes 3/4 of pack a day. recently in 2021 Smoking packs per day: 1 Smoking cigarettes per day: 20.0 Years smoked: 45 Smoking pack-years: 45.00 Smoking status: Current every day smoker Tobacco type: cigarettes Second hand tobacco smoke exposure: No Alcohol intake: never Substance use: never Substance use type: does not use Lack of Transportation: No Lack of Food: Never True Current Housing: I Have Housing Concerned About Future Housing: No Difficulty Paying Gas/Electric Bills: No Difficulty Paying for Meds: No Currently Unemployed: No Education: High School Diploma/GED Difficulty w/ Childcare or Family Care: No Living arrangements: alone Gender identity (if verbalized by the patient): Female Spiritual care concerns: No Agree to blood products: Yes Exam Narrative: APPEARANCE: Well appearing, no pain, no distress, well-nourished. HEAD: normocephalic, atraumatic. EYES: PERRLA/EOMI, conjunctivae clear. NOSE: Normal no drainage EARS:TMS clear with good light reflex. THROAT: Pharynx clear, no exudate. NECK: Supple. No adenopathy, no masses. RESPIRATORY: Airway patent, respirations nonlabored. Clear to auscultation bilaterally, no rales, rhonchi, wheezing. CARDIOVASCULAR: Regular rate and rhythm without murmurs rubs or gallops. ABDOMINAL: Soft, nontender, nondistended, normal bowel sounds MUSCULOSKELETAL: Moves all extremities. Strength/ROM intact, No edema, No calf tendernes
[2024-03-03 19:16] VITALS: BP 157/73; PULSE 78; RESP 20; O2SAT 94
[2024-03-03 19:19] LABS: Influenza A QL RT-PCR Negative (Negative); Influenza B QL RT-PCR Negative (Negative); RSV RNA, RT-PCR Negative (Negative); SARS-CoV-2 RNA PCR Negative (Negative)
[2024-03-03] MEDS: HYDROmorphone HCL INJ (*CRX) 1 MG/ML SYR 0.5 MG IV PUSH ×3 (19:33→23:43)
--- NOTE | 2024-03-03 20:12 | ECG_ITS ---
Test Date: 2024-03-03 20:12:25 Measurements Intervals [place] Rate: 81 P: 80 [place]: 189 QRS: 76 QRSD: 78 T: 73 QT: 350 QTc: 408 Interpretive Statements SINUS RHYTHM ANTEROSEPTAL INFARCT, AGE INDETERMINATE ABNORMAL ECG Compared to ECG 03/03/2024 16:40:42 NO CHANGE Electronically Signed On 03-04-2024 15:10:24 CDT by eJferson Mendez D.O.
[2024-03-03 20:51] LABS: Troponin I < 0.012 ng/mL (0.000-0.034)
[2024-03-03 20:52] VITALS: BP 117/79; PULSE 75; RESP 20; O2SAT 97
--- NOTE | 2024-03-03 22:18 | PC.NURSE ---
Porsha with [facility] transfer center called to give room number for acceptance at [facility] in [place] by accepting physician Dr. Castillo to room #360-4 with report to [phone].
--- NOTE | 2024-03-03 22:23 | PC.NURSE ---
Pt requesting pain medicine. made aware. DR. Zee gave VORB for 0.5mg dilaudid IVP stat.
--- NOTE | 2024-03-03 22:35 | PC.NURSE ---
Report given to Jessica umanzor [facility]
[2024-03-03 22:43] VITALS: BP 158/65; PULSE 79; RESP 20; O2SAT 95
== END 2024-03-03 23:48 | disposition short-term general hospital (02) ==
PROVIDERS: Emergency Provider Emergency Medicine; PCP Family Medicine
DX: I71.43 Infrarenal abdominal aortic aneurysm, without rupture (principal); I70.90 Unspecified atherosclerosis; R10.10 Upper abdominal pain, unspecified; Z20.822 Contact with and (suspected) exposure to COVID-19; E78.5 Hyperlipidemia, unspecified; E03.9 Hypothyroidism, unspecified; E55.9 Vitamin D deficiency, unspecified; K21.9 Gastro-esophageal reflux disease without esophagitis; M19.90 Unspecified osteoarthritis, unspecified site; F41.9 Anxiety disorder, unspecified; F17.210 Nicotine dependence, cigarettes, uncomplicated; Z98.1 Arthrodesis status; Z87.11 Personal history of peptic ulcer disease; Z90.710 Acquired absence of both cervix and uterus; Z90.49 Acquired absence of other specified parts of digestive tract; Z90.3 Acquired absence of stomach [part of]; Z79.899 Other long term (current) drug therapy; J43.9 Emphysema, unspecified; R91.8 Other nonspecific abnormal finding of lung field; R94.31 Abnormal electrocardiogram [ECG] [EKG]
CPT/HCPCS: 36415; 71045; 71275; 74174; 80053; 84484; 85025; 87637; 93005; 96374; 96376; 99285; J1170; Q9967

== ENCOUNTER 2024-05-31 04:36 | Emergency (ER) | payer MEDICARE, SELFPAY ==
--- NOTE | ~2024-05-31 | CT_ITS ---
EXAMINATION: CT abdomen pelvis w con DATE: 05/31/2024 06:17 INDICATION: Abdominal pain. TECHNIQUE: Computed tomography (CT) of the abdomen and pelvis was performed with 100 mL Omnipaque 350 intravenous contrast. Automated exposure control and iterative reconstruction technique were employe d. The dose-length product was 167.10 mGy-cm. COMPARISON: CT abdomen and pelvis 03/03/2024 FINDINGS: The visualized portions of the lung bases demonstrate emphysema and minimal atelectasis. No pleural effusion. The heart size is normal. No pericardial effusion. The liver and spleen are normal . There are changes of cholecystectomy. The pancreas, adrenal glands, and right kidney are normal. Th ere are cysts in left kidney measuring up to 2.0 cm. There is calcified atherosclerosis of the aorta and many of the other arteries. Again seen are 2 penetrating atherosclerotic ulcers of abdominal aort a. There are no dilated loops of bowel. There is a large volume of stool in the colon. There are surg ical clips around the gastroesophageal junction. There are no pathologically enlarged lymph nodes. Th ere is no free intraperitoneal fluid. There is a total left hip arthroplasty. There is severe lumbar spondylosis. There are changes of anterior fusion procedure at L5-S1. IMPRESSION: 1. 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 Reviewed, dictated and finalized at location A.
--- NOTE | ~2024-05-31 | US_ITS ---
EXAMINATION: US abdomen limited DATE: 05/31/2024 07:34 INDICATION: Abdominal pain. Abnormal liver function tests. TECHNIQUE: Multiple grayscale and Doppler ultrasound images of the abdomen were obtained. COMPARISON: CT abdomen and pelvis 05/31/2024 FINDINGS: The visualized portions of the head, body, and tail of the pancreas are normal. The liver i s normal without focal lesion. There is normal flow in main portal vein. The gallbladder is absent. T he common duct is normal and measures 6 mm. IMPRESSION: 1. Normal right upper quadrant ultrasound status post cholecystectomy. Reviewed, dictated and finalized at location A.
[2024-05-31 04:35] VITALS: BP 150/97; PULSE 86; RESP 19; TEMP 36.8; O2SAT 94
--- NOTE | 2024-05-31 04:37 | ECG_ITS ---
Test Date: 2024-05-31 04:37:29 Measurements Intervals [place] Rate: 92 P: 80 ID: 173 QRS: 76 QRSD: 93 T: 68 QT: 342 QTc: 425 Interpretive Statements SINUS RHYTHM WITH SINUS ARRHYTHMIA SEPTAL MYOCARDIAL INFARCTION , OF INDETERMINATE AGE [40+ ms Q WAVE IN V1/V2] ABNORMAL ECG Compared to ECG 03/03/2024 20:12:25 No significant changes Electronically Signed On 05-31-2024 13:14:22 CDT by Jin Hernandez M.D.
[2024-05-31] MEDS: PANTOPRAZOLE SODIUM IV 40 MG VIAL IV PUSH (04:50)
[2024-05-31] MEDS: FAMOTIDINE 20 MG/2 ML VIAL IV PUSH (04:50)
[2024-05-31] MEDS: ONDANSETRON INJ 4 MG/2 ML VIAL IV PUSH (04:52)
[2024-05-31] MEDS: fentaNYL CITRATE INJ (*CRX) 100 MCG/2 ML VIAL 25 MCG IV PUSH (04:53)
[2024-05-31] MEDS: SODIUM CHLORIDE 0.9% IV 1,000 ML 999 ML IV CONT (04:53)
--- NOTE | 2024-05-31 04:57 | PC.NURSE ---
labs sent at this time. patient medicated per oct. patient is still moaning in room stating she is in pain. patient did not have any relief after RN gave IV fentanyl. Will re-check patient for pain.
[2024-05-31 05:01] LABS: Basophils Absolute Auto 0.1 K/mm3 (0.0-0.1); Basophils Percent Auto 0.4 % (0.2-1.2); Eosinophils Absolute Auto 0.1 K/mm3 (0-0.3); Eosinophils Percent Auto 0.5 % (0-4.4); Hematocrit 38.6 % (37.0-47.0); Hemoglobin 13.3 g/dL (12.0-15.0); Immature Granulocyte Absolute 0.22 K/mm3 (0.00-0.031); Immature Granulocyte Percent A 1.3 % (0-0.5); Lymphocytes Absolute Auto 0.52 K/mm3 (0.9-3.2); Mean Corpuscular HGB Conc 34.5 g/dl (32-36); Mean Corpuscular Hemoglobin 32.2 pg (26-34); Mean Corpuscular Volume 93.5 fl (80-100); Mean Platelet Volume 11.7 fl (7.4-10.4); Monocytes Absolute Auto 0.6 K/mm3 (0.1-0.6); Monocytes Percent Auto 3.2 % (2.6-8.5); Neutrophils Absolute Auto 15.6 K/mm3 (1.3-6.7); Neutrophils Percent Auto 91.6 % (45.5-73.1); Platelet Count Result 254 k/mm3 (150-375); Red Blood Count 4.13 M/mm3 (4.2-5.4); Red Cell Distribution Width 13.9 % (11.5-14.5); White Blood Count 17.1 K/mm3 (4.5-10.0)
--- NOTE | 2024-05-31 05:01 | PC.NURSE ---
This patient presents to ED with complaint of lower abdominal pain. patient has hx of gastric ulcers as per EGD performed in march. patient presents moaning and has facial grimace. patient is alert and oriented x's 4. poor historian due to pain. patient placed in an gown.
[2024-05-31 05:11] LABS: Lactic Acid Reflex 1.3 mmol/L (0.7-2.0)
--- NOTE | 2024-05-31 05:12 | ED_ITS ---
HPI - General Adult General Chief complaint: Abdominal Pain <Len Conde MD - Last Filed: 05/31/24 05:14> Stated complaint: ABD & LOWER BACK PAIN X 2 DAYS <Len Conde MD - Last Filed: 05/31/24 05:14> Time Seen by Provider: 05/31/24 04:41 <Len Conde MD - Last Filed: 05/31/24 05:14> History of Present Illness HPI narrative: Patient is a 73-year-old female who presents emergency department chief complaint of abdominal pain and back pain for the last 3 days. The patient reports she has a burning sensation her abdomen reports she has had an endoscopy that showed she has a ulcerations. Patient is on a PPI and reports that she has had no fever no vomiting no diarrhea reports no bloody emesis noted blood in her stool patient reports no trauma denies shortness of breath chest pain <Len Conde MD - Last Filed: 05/31/24 05:14> Related Data Home medications: Home Medications Medication Instructions Recorded Confirmed hydrocodone 5 mg-acetaminophen 325 1 tablet PO Q4H PRN 10/18/22 02/26/24 mg tablet cyclobenzaprine 5 mg tablet 5 mg PO TID 05/22/24 hydrocodone 10 mg-acetaminophen 1 tablet PO QID PRN 05/22/24 325 mg tablet <Len Conde MD - Last Filed: 05/31/24 05:14> Allergies/adverse reactions: Allergies Allergy/AdvReac Type Severity Reaction Status Date / Time meperidine Allergy Mild Nausea and Verified 05/22/24 13:52 Vomiting morphine Allergy Mild Nausea and Verified 05/22/24 13:52 Vomiting oxycodone Allergy Mild tingling Verified 05/22/24 13:52 nitrofurantoin AdvReac Mild Chest Verified 05/22/24 13:52 heaviness, SOB MEPERIDINE HCL Allergy Mild NAUSEATED Uncoded 05/22/24 13:52 <Len Conde MD - Last Filed: 05/31/24 05:14> Review of Systems Review of Systems: A 10 system review of systems was completed on the patient and is negative except for what is stated in the HPI. Nursing and ancillary documentation was reviewed. <Len Conde MD - Last Filed: 05/31/24 05:14> [facility] Past Medical History Medical History: Medical History Acute insomnia Anxiety Arthritis Chronic low back pain DDD (degenerative disc disease) GERD (gastroesophageal reflux disease) History of blood transfusion History of syncope Hyperlipidemia Hypothyroidism Iron deficiency anemia Pulmonary nodule Pulmonary nodules/lesions, multiple Ulcer Viral meningitis Vitamin D deficiency <Len Conde MD - Last Filed: 05/31/24 05:14> Surgical History Surgical History: Surgical History H/O: hysterectomy History of carpal tunnel release History of cholecystectomy History of dilation of urethra History of foot surgery History of inguinal hernia repair Patient is unsure this is accurate History of lumbar fusion L4-L5 History of partial gastrectomy Due to peptic ulcer disease History of tonsillectomy <Len Conde MD - Last Filed: 05/31/24 05:14> Family History Family History: Family History Grandparent Carcinoma of colon Mother Cerebrovascular accident Patient's mother is Other Family history of malignant neoplasm of male breast Family history of malignant neoplasm of urinary bladder <Len Conde MD - Last Filed: 05/31/24 05:14> Social History Social History: Social History Social History: Smokes 3/4 of pack a day. recently in 2021 Smoking packs per day: 1 Smoking cigarettes per day: 20.0 Years smoked: 45 Smoking pack-years: 45.00 Smoking status: Current every day smoker Tobacco type: cigarettes Second hand tobacco smoke exposure: No Alcohol intake: never Substance use: never Substance use type: does not use Lack of Transportation: No Lack of Food: Never True Current Housing: I Have Housing Concerned About Future Housing: No Difficulty Paying Gas/Electric Bills: No Difficulty Paying for Meds: No Currently Unemployed: No Education: High School Diploma/GED Difficulty w/ Childcare or Family Care: No Living arrangements: alone Gender identity (if verbalized by the patient): Female Spiritual care concerns: No Agree to blood products: Yes <Len Conde MD - Last Filed: 05/31/24 05:14> Exam Narrative: GENERAL: Well-appearing, well-nourished, and in no acute distress. HEAD: Normocephalic, atraumatic. EYES: PERRLA and EOMI. ENT: Nares clear, no rhinorrhea or epistaxis. Mucous membranes moist. NECK: Supple. CHEST: Clear to auscultation. No respiratory distress. HEART: Regular rate and rhythm. No murmur heard. Normal peripheral pulses. ABDOMEN: Soft, diffusely tender to palpation, nondistended, normal active bowel sounds. EXTREMITIES: Normal range of motion. No edema. SKIN: Warm, dry, no rash. NEURO: No focal deficits. Alert and oriented x3. PSYCH: Normal mood and affect. <Len Conde MD - Last Filed: 05/31/24 05:14> Course Course Emergency Course: Patient resting comfortably. Reports little bit of bilateral by Ki ache that is chronic for her. Reports she has had multiple episodes of diarrhea through the evening. Abdominal exam is soft and nontender. CT and ultrasound reviewed. Suspect gastroenteritis. Discharge home with supportive care. Urinalysis without infection. Patient received fentanyl 25 mcg, Protonix 40 mg, Zofran 4 mg, and 1 L IV fluid. She also received famotidine 20 mg IV for her burning discomfort. She has no pain in her abdomen at this time. <Abdiel Ruiz MD - Last Filed: 05/31/24 08:41> Vital Signs Vital signs: Vital Signs Temperature 98.2 F 05/31/24 04:35 Pulse Rate 86 05/31/24 04:35 Respiratory Rate 19 05/31/24 04:35 Blood Pressure 150/97 H 05/31/24 04:35 Pulse Oximetry 94 05/31/24 04:35 Oxygen Delivery Room Air 05/31/24 04:35 Temperature 98.2 F 05/31/24 04:35 Pulse Rate 79 05/31/24 07:45 Respiratory Rate 14 05/31/24 07:45 Blood Pressure 162/77 H 05/31/24 07:45 Pulse Oximetry 95 05/31/24 07:45 Oxygen Delivery Room Air 05/31/24 04:35 <Len Conde MD - Last Filed: 05/31/24 05:14> Vital Signs Temperature 98.2 F 05/31/24 04:35 Pulse Rate 86 05/31/24 04:35 Respiratory Rate 19 05/31/24 04:35 Blood Pressure 150/97 H 05/31/24 04:35 Pulse Oximetry 94 05/31/24 04:35 Oxygen Delivery Room Air 05/31/24 04:35 Temperature 98.2 F 05/31/24 04:35 Pulse Rate 79 05/31/24 07:45 Respiratory Rate 14 05/31/24 07:45 Blood Pressure 162/77 H 05/31/24 07:45 Pulse Oximetry 95 05/31/24 07:45 Oxygen Delivery Room Air 05/31/24 04:35 <Abdiel Ruiz MD - Last Filed: 05/31/24 08:41> Medical Decision Making Vital Signs Vital Signs: Vital Signs Temperature 98.2 F 05/31/24 04:35 Pulse Rate 86 05/31/24 04:35 Respiratory Rate 19 05/31/24 04:35 Blood Pressure 150/97 H 05/31/24 04:35 Pulse Oximetry 94 05/31/24 04:35 Oxygen Delivery Room Air 05/31/24 04:35 Temperature 98.2 F 05/31/24 04:35 Pulse Rate 79 05/31/24 07:45 Respiratory Rate 14 05/31/24 07:45 Blood Pressure 162/77 H 05/31/24 07:45 Pulse Oximetry 95 05/31/24 07:45 Oxygen Delivery Room Air 05/31/24 04:35 <Len Conde MD - Last Filed: 05/31/24 05:14> Vital Signs Temperature 98.2 F 05/31/24 04:35 Pulse Rate 86 05/31/24 04:35 Respiratory Rate 19 05/31/24 04:35 Blood Pressure 150/97 H 05/31/24 04:35 Pulse Oximetry 94 05/31/24 04:35 Oxygen Delivery Room Air 05/31/24 04:35 Temperature 98.2 F 05/31/24 04:35 Pulse Rate 79 05/31/24 07:45 Respiratory Rate 14 05/31/24 07:45 Blood Pressure 162/77 H 05/31/24 07:45 Pulse Oximetry 95 05/31/24 07:45 Oxygen Delivery Room Air 05/31/24 04:35 <Abdiel Ruiz MD - Last Filed: 05/31/24 08:41> Lab Data Result diagrams: 05/31/24 04:47 05/31/24 05:24 <Len Conde MD - Last Filed: 05/31/24 05:14> Labs: Lab Results 05/31/24 05/31/24 05/31/24 Range/Units 04:47 05:24 07:09 WBC 17.1 H (4.5-10.0) K/mm3 RBC 4.13 L (4.2-5.4) M/mm3 Hgb 13.3 (12.0-15.0) g/dL Hct 38.6 (37.0-47.0) % MCV 93.5 (80-100) fl MCH 32.2 (26-34) pg MCHC 34.5 (32-36) g/dl RDW 13.9 (11.5-14.5) % Plt Count 254 (150-375) k/mm3 MPV 11.7 H (7.4-10.4) fl Immature Gran % (Auto) 1.3 H (0-0.5) % Neut % (Auto) 91.6 H (45.5-73.1) % Lymph % (Auto) 3.0 L (18.3-44.2) % [place] % (Auto) 3.2 (2.6-8.5) % Eos % (Auto) 0.5 (0-4.4) % Baso % (Auto) 0.4 (0.2-1.2) % Lymph # (Auto) 0.52 L (0.9-3.2) K/mm3 [place] # (Auto) 0.6 (0.1-0.6) K/mm3 Eos # (Auto) 0.1 (0-0.3) K/mm3 Baso # (Auto) 0.1 (0.0-0.1) K/mm3 Abs Immat Gran (auto) 0.22 H (0.00-0.031) K/mm3 Absolute Neuts (auto) 15.6 H (1.3-6.7) K/mm3 Absolute Nucleated RBC 0.000 (0.0-0.012) K/mm3 Nucleated RBC % 0.0 (0.0-0.2) % Sodium 136 L (137-145) mmol/L Potassium 3.3 L (3.4-5.0) mmol/L Chloride 106 (98-107) mmol/L Carbon Dioxide 22 (22-30) mmol/L Anion Gap 8 (4-12) mmol/L BUN 16 (7-17) mg/dL Creatinine 0.50 L (0.7-1.0) mg/dL Estim Creat Clear Calc 57 ml/min Estimated GFR > 60 (59 - ) Glucose 118 H (65-110) mg/dL Lactic Acid 1.3 (0.7-2.0) mmol/L Calcium 8.3 L (8.4-10.2) mg/dL Magnesium 1.6 (1.6-2.3) mg/dL Total Bilirubin 2.8 H (0.2-1.3) mg/dL AST 76 H (14-36) U/L ALT 155 H (6-35) U/L Alkaline Phosphatase 442 H (38-126) U/L Troponin I < 0.012 (0.000-0.034) ng/mL Total Protein 6.0 L (6.3-8.2) g/dL Albumin 3.1 L (3.5-5.1) g/dL Lipase 493 H (23-300) U/L Urine Color Yellow (Yellow) Urine Appearance Clear (Clear) Urine pH 5.5 (5.0-9.0) Ur Specific [place] 1.032 (1.001-1.035) Urine Protein Negative (Negative) mg/dL Urine Glucose (UA) Negative (Negative) mg/dL Urine Ketones 1+ H (Negative) mg/dL Ur Blood (Man) Negative (Negative) Urine Nitrate Negative (Negative) Urine Bilirubin Negative (Negative) Urine Urobilinogen 0.2 (<2.0) mg/dL Leukocyte Esterase Rfl Trace H (Negative) JUSTEN/UL Urine RBC 0-2 (0-2) /hpf Urine WBC 0-5 (0-3) /hpf Ur Squamous Epith Cells None seen (Few) /hpf Urine Bacteria None seen /hpf Urine Casts 0-2 <Len Conde MD - Last Filed: 05/31/24 05:14> Lab Results 05/31/24 05/31/24 05/31/24 Range/Units 04:47 05:24 07:09 WBC 17.1 H (4.5-10.0) K/mm3 RBC 4.13 L (4.2-5.4) M/mm3 Hgb 13.3 (12.0-15.0) g/dL Hct 38.6 (37.0-47.0) % MCV 93.5 (80-100) fl MCH 32.2 (26-34) pg MCHC 34.5 (32-36) g/dl RDW 13.9 (11.5-14.5) % Plt Count 254 (150-375) k/mm3 MPV 11.7 H (7.4-10.4) fl Immature Gran % (Auto) 1.3 H (0-0.5) % Neut % (Auto) 91.6 H (45.5-73.1) % Lymph % (Auto) 3.0 L (18.3-44.2) % [place] % (Auto) 3.2 (2.6-8.5) % Eos % (Auto) 0.5 (0-4.4) % Baso % (Auto) 0.4 (0.2-1.2) % Lymph # (Auto) 0.52 L (0.9-3.2) K/mm3 [place] # (Auto) 0.6 (0.1-0.6) K/mm3 Eos # (Auto) 0.1 (0-0.3) K/mm3 Baso # (Auto) 0.1 (0.0-0.1) K/mm3 Abs Immat Gran (auto) 0.22 H (0.00-0.031) K/mm3 Absolute Neuts (auto) 15.6 H (1.3-6.7) K/mm3 Absolute Nucleated RBC 0.000 (0.0-0.012) K/mm3 Nucleated RBC % 0.0 (0.0-0.2) % Sodium 136 L (137-145) mmol/L Potassium 3.3 L (3.4-5.0) mmol/L Chloride 106 (98-107) mmol/L Carbon Dioxide 22 (22-30) mmol/L Anion Gap 8 (4-12) mmol/L BUN 16 (7-17) mg/dL Creatinine 0.50 L (0.7-1.0) mg/dL Estim Creat Clear Calc 57 ml/min Estimated GFR > 60 (59 - ) Glucose 118 H (65-110) mg/dL Lactic Acid 1.3 (0.7-2.0) mmol/L Calcium 8.3 L (8.4-10.2) mg/dL Magnesium 1.6 (1.6-2.3) mg/dL Total Bilirubin 2.8 H (0.2-1.3) mg/dL AST 76 H (14-36) U/L ALT 155 H (6-35) U/L Alkaline Phosphatase 442 H (38-126) U/L Troponin I < 0.012 (0.000-0.034) ng/mL Total Protein 6.0 L (6.3-8.2) g/dL Albumin 3.1 L (3.5-5.1) g/dL Lipase 493 H (23-300) U/L Urine Color Yellow (Yellow) Urine Appearance Clear (Clear) Urine pH 5.5 (5.0-9.0) Ur Specific [place] 1.032 (1.001-1.035) Urine Protein Negative (Negative) mg/dL Urine Glucose (UA) Negative (Negative) mg/dL Urine Ketones 1+ H (Negative) mg/dL Ur Blood (Man) Negative (Negative) Urine Nitrate Negative (Negative) Urine Bilirubin Negative (Negative) Urine Urobilinogen 0.2 (<2.0) mg/dL Leukocyte Esterase Rfl Trace H (Negative) JUSTEN/UL Urine RBC 0-2 (0-2) /hpf Urine WBC 0-5 (0-3) /hpf Ur Squamous Epith Cells None seen (Few) /hpf Urine Bacteria None seen /hpf Urine Casts 0-2 <Abdiel Ruiz MD - Last Filed: 05/31/24 08:41> Discharge Plan Discharge Clinical Impression: Gastroenteritis <Len Conde MD - Last Filed: 05/31/24 05:14> Patient Disposition: Home, Self-Care <Len Conde MD - Last Filed: 05/31/24 05:14> Condition: Stable <Len Conde MD - Last Filed: 05/31/24 05:14> Instructions: Gastroenteritis (ED) <Len Conde MD - Last Filed: 05/31/24 05:14> Additional Instructions: Please drink plenty of fluids at home. Return to the emergency department if you develop high fevers, have persistent severe abdominal pain, or have bloody stools or vomit, as these could be signs of a more serious medical emergency. Return to the emergency department if you are unable to keep down liquids because of severe nausea/vomiting. <Len Conde MD - Last Filed: 05/31/24 05:14> Prescriptions: New simethicone 125 mg capsule 125 mg PO QID Qty: 20 0RF Rx Instructions: administer after meals and at bedtime dicyclomine 20 mg tablet 20 mg PO QID Qty: 20 0RF ondansetron 4 mg tablet,disintegrating 4 mg PO Q6H PRN (Reason: nausea and vomiting) Qty: 10 0RF pantoprazole 20 mg tablet,delayed release (DR/EC) 20 mg PO HS Qty: 14 0RF No Action ferrous sulfate 325 mg (65 mg iron) tablet 325 mg PO BID Qty: 30 0RF hydrocodone-acetaminophen 5-325 mg tablet 1 tablet PO Q4H PRN hydrocodone-acetaminophen 10-325 mg tablet 1 tablet PO QID PRN cyclobenzaprine 5 mg tablet 5 mg PO TID pantoprazole 40 mg tablet,delayed release (DR/EC) 40 mg PO BID Qty: 180 1RF albuterol sulfate 90 mcg/actuation HFA aerosol inhaler 1 inh inhalation Q4H PRN (Reason: shortness of breath or wheezing) Qty: 8.5 0RF (DME) Easy Touch 3 mL 25 gauge x 1 syringe See Rx Instructions .ROUTE .MEDSUPPLY Qty: 12 0RF Rx Instructions: Use with Vitamin B injection once monthly cyanocobalamin (vitamin B-12) 1,000 mcg/mL solution See Rx Instructions .ROUTE .COMPLEX Qty: 3 2RF Dose Instruction: INJECT 0.1 ML INTRAMUSCULARLY ONCE EVERY 4 WEEKS. Rx Instructions: INJECT 1 ML INTRAMUSCULARLY ONCE EVERY 4 WEEKS. ergocalciferol (vitamin D2) 1,250 mcg (50,000 unit) capsule 1,250 mcg PO MONTHLY Qty: 6 0RF Rx Instructions: Due on the first of each month vilazodone 20 mg tablet 20 mg PO DAILY Qty: 90 0RF Rx Instructions: must administer with a meal/food fluticasone propionate 50 mcg/actuation spray,suspension See Rx Instructions .ROUTE .COMPLEX Qty: 48 0RF Dose Instruction: SHAKE LIQUID AND USE 1 SPRAY IN EACH NOSTRIL EVERY 12 HOURS Rx Instructions: SHAKE LIQUID AND USE 1 SPRAY IN EACH NOSTRIL EVERY 12 HOURS amitriptyline 75 mg tablet See Rx Instructions .ROUTE .COMPLEX Qty: 90 1RF Dose Instruction: TAKE 1 TABLET BY MOUTH ONCE DAILY AT BEDTIME Rx Instructions: TAKE 1 TABLET BY MOUTH ONCE DAILY AT BEDTIME levothyroxine 112 mcg tablet 112 mcg PO DAILY Qty: 90 1RF trazodone 100 mg tablet See Rx Instructions .ROUTE .COMPLEX Qty: 90 1RF Dose Instruction: TAKE 1 TABLET BY MOUTH EVERY DAY AT BEDTIME NEEDED FOR INSOMNIA Rx Instructions: TAKE 1 TABLET BY MOUTH EVERY DAY AT BEDTIME NEEDED FOR INSOMNIA buspirone 15 mg tablet See Rx Instructions .ROUTE .COMPLEX Qty: 180 1RF Dose Instruction: Take 1 tablet by mouth twice daily Rx Instructions: Take 1 tablet by mouth twice daily amoxicillin-pot clavulanate 875-125 mg tablet 1 tablet PO BID Qty: 14 0RF <Len Conde MD - Last Filed: 05/31/24 05:14> Follow-up/Referrals: Tanvir Min MD [Primary Care Provider] - 1 Week <Len Conde MD - Last Filed: 05/31/24 05:14>
[2024-05-31] MEDS: HYDROmorphone HCL INJ (*CRX) 1 MG/ML SYR 0.5 MG IV PUSH (05:30)
[2024-05-31 05:32] VITALS: BP 173/88; PULSE 91; RESP 19; O2SAT 93
[2024-05-31 05:48] LABS: Alanine Aminotransferase 155 U/L (6-35); Albumin Level 3.1 g/dL (3.5-5.1); Alkaline Phosphatase 442 U/L (38-126); Anion Gap 8 mmol/L (4-12); Aspartate Amino Transferase 76 U/L (14-36); Bilirubin,Total 2.8 mg/dL (0.2-1.3); Blood Urea Nitrogen 16 mg/dL (7-17); Calcium 8.3 mg/dL (8.4-10.2); Carbon Dioxide 22 mmol/L (22-30); Chloride 106 mmol/L (98-107); Estimated CRCL calculation 57 ml/min; Estimated Glomerular Filt Rate > 60; Glucose 118 mg/dL (65-110); Magnesium 1.6 mg/dL (1.6-2.3); Potassium 3.3 mmol/L (3.4-5.0); Sodium 136 mmol/L (137-145)
[2024-05-31 05:52] LABS: Troponin I < 0.012 ng/mL (0.000-0.034)
[2024-05-31 06:06] LABS: Lipase 493 U/L (23-300)
[2024-05-31] MEDS: MAGNESIUM HYDROXIDE SUSP 30 ML UDC PO (07:05)
--- NOTE | 2024-05-31 07:16 | PC.NURSE ---
Report given to Angelica EL. No pending orders.
[2024-05-31 07:27] LABS: Add Urine Microscopic? YES; Appearance Urine Clear (Clear); Bacteria Urine None Seen /hpf; Bilirubin Urine Negative (Negative); Blood Urine Negative (Negative); Color Urine Yellow (Yellow); Glucose Urine UA Negative (Negative); Ketones Urine 1+ mg/dL (Negative); Leukocyte Esterase Ur Trace LEU/UL (Negative); Nitrate Urine Negative (Negative); Non Pathogenic Casts 0-2; Protein Urine Negative (Negative); RBC Urine 0-2 /hpf (0-2); Specific Grav Ur 1.032 (1.001-1.035); Squamous Epithelial Cell Urine None Seen /hpf (Few); Urobilinogen Urine 0.2 mg/dL (<2.0); WBC Urine 0-5 /hpf (0-3); pH Urine 5.5 (5.0-9.0)
[2024-05-31 07:45] VITALS: BP 162/77; PULSE 79; RESP 14; O2SAT 95
[2024-05-31] MEDS: HYDROcodone/acetaminophen (*CRX) 5-325 MG TABLET 1 TAB PO (08:50)
== END 2024-05-31 09:05 | disposition home or self-care (01) ==
PROVIDERS: Emergency Medicine; Emergency Provider Emergency Medicine; PCP Family Medicine
DX: K52.9 Noninfective gastroenteritis and colitis, unspecified (principal); E78.5 Hyperlipidemia, unspecified; E03.9 Hypothyroidism, unspecified; E55.9 Vitamin D deficiency, unspecified; D50.9 Iron deficiency anemia, unspecified; K21.9 Gastro-esophageal reflux disease without esophagitis; M19.90 Unspecified osteoarthritis, unspecified site; F41.9 Anxiety disorder, unspecified; F17.210 Nicotine dependence, cigarettes, uncomplicated; Z90.49 Acquired absence of other specified parts of digestive tract; Z90.710 Acquired absence of both cervix and uterus; Z98.1 Arthrodesis status; Z79.899 Other long term (current) drug therapy; R94.31 Abnormal electrocardiogram [ECG] [EKG]
CPT/HCPCS: 36415; 74177; 76705; 80053; 81001; 83605; 83690; 83735; 84484; 85025; 93005; 96361; 96374; 96375; 99284; A9270; J1171; J2405; J2470; J3010; J7030; Q9967